=== PATIENT | female | born 1995 | race Caucasian/White ===

== ENCOUNTER 2018-11-16 16:04 | Emergency (ER) | payer SELFPAY ==
[~2018-11-16] VITALS: Ht 167.6 cm; Wt 69.6 kg
[2018-11-16 16:14] VITALS: BP 121/70; PULSE 85; RESP 20; Ht 167.6 cm; Wt 69.6 kg
== END 2018-11-17 00:45 | disposition left against medical advice (07) ==
LOC: FTE 16:04
DX: Z53.21 Procedure and treatment not carried out due to patient leaving prior to being seen by health care provider (principal)
CPT/HCPCS: 93005

== ENCOUNTER 2019-07-05 15:38 | Emergency (ER) | payer MEDICAID ==
[~2019-07-05] VITALS: Ht 175.3 cm; Wt 72.3 kg
[~2019-07-05 15:38] MED LIST: IBUP-1542 PO; POLY17PO6 PO
[2019-07-05 15:45] VITALS: BP 112/64; PULSE 72; RESP 16; Ht 175.3 cm; Wt 72.3 kg
[2019-07-05] MEDS ORDERED: POLYETHYLENE GLYCOL 17 GM PACKET PO ONE (18:30)
== END 2019-07-05 18:36 | disposition home or self-care (01) ==
LOC: FTE 15:38
DX: K59.00 Constipation, unspecified (principal)
CPT/HCPCS: 76856; 80053; 81003; 83690; 84703; 85025; Z7610